=== PATIENT | female | born 1965 | race Caucasian/White ===

== ENCOUNTER 2019-11-20 15:50 | Emergency (ER) | payer SELFPAY ==
[~2019-11-20] VITALS: Ht 162.6 cm; Wt 75.0 kg
[~2019-11-20 15:50] MED LIST: NOCURR
[2019-11-20 16:14] VITALS: BP 156/117
== END 2019-11-20 20:00 | disposition left against medical advice (07) ==
LOC: EMS 15:51
DX: R20.0 Anesthesia of skin (principal); Z53.21 Procedure and treatment not carried out due to patient leaving prior to being seen by health care provider